=== PATIENT | female | born 1950 | race Caucasian/White ===

== ENCOUNTER → 2016-07-05 | Outpatient (CLI) | payer BC | END | disposition short-term general hospital (02) | LOC: CLORTH 10:31 | DX: S72.22XD Displaced subtrochanteric fracture of left femur, subsequent encounter for closed fracture with routine healing (principal) | CPT/HCPCS: 73552-LT ==

== ENCOUNTER → 2016-08-02 | Outpatient (CLI) | payer BC | END | disposition short-term general hospital (02) | LOC: CLORTH 09:44 | DX: Z47.89 Encounter for other orthopedic aftercare (principal); S72.22XK Displaced subtrochanteric fracture of left femur, subsequent encounter for closed fracture with nonunion | CPT/HCPCS: 73552-LT ==

== ENCOUNTER → 2016-08-30 | Outpatient (CLI) | payer BC | END | disposition short-term general hospital (02) | LOC: CLORTH 01:14 | DX: S72.22XK Displaced subtrochanteric fracture of left femur, subsequent encounter for closed fracture with nonunion (principal) | CPT/HCPCS: 73552-LT ==

== ENCOUNTER → 2016-09-27 | Outpatient (CLI) | payer MEDICARE, BC | END | disposition short-term general hospital (02) | LOC: CLORTH 09:48 | DX: S72.22XD Displaced subtrochanteric fracture of left femur, subsequent encounter for closed fracture with routine healing (principal); S72.302D Unspecified fracture of shaft of left femur, subsequent encounter for closed fracture with routine healing | CPT/HCPCS: 73552-LT ==

== ENCOUNTER → 2016-11-08 | Outpatient (CLI) | payer MEDICARE, BC | END | disposition short-term general hospital (02) | LOC: CLORTH 10:54 | DX: S72.22XD Displaced subtrochanteric fracture of left femur, subsequent encounter for closed fracture with routine healing (principal) | CPT/HCPCS: 73552-LT ==